=== PATIENT | male | born 1995 | race Hispanic/Latino ===

== ENCOUNTER 2018-01-16 01:08 | Emergency (ER) | payer SELFPAY ==
[2018-01-16 02:03] LABS: Absolute Lymphocytes (CBC) 2.2 K/uL (0.7-4.9); Absolute Monocytes 0.8 K/uL (0.1-1.3); Absolute Neutrophil 5.5 K/uL (1.8-8.0); Basophils % 0.4 % (0-1.3); Eosinophils % 3.2 % (0-4.4); Hematocrit 45.6 % (39.6-49.0); Lymphocytes % 24.6 % (15.3-44.8); MCH 30.5 pg (27.0-35.0); MCV 89.4 fL (80-100); MPV 8.1 fL (7.6-11.3); Monocytes % 9.2 % (3.3-12.3)
[2018-01-16 02:10] LABS: Bicarbonate 27 mEq/L (21-31); Glucose Level 115 mg/dL (65-120); Potassium 3.6 mEq/L (3.6-5.0); Sodium Level 137 mEq/L (135-145)
[2018-01-16 02:13] LABS: ALT/SGPT 26 IU/L (10-60); AST/SGOT 24 IU/L (10-42); Albumin 4.1 g/dL (3.2-5.5); Alkaline Phosphatase 72 IU/L (42-121); BUN Blood Urea Nitrogen 12 mg/dL (6-20); Bilirubin Total 0.5 mg/dL (0.3-1.2); Protein, Total 7.1 g/dL (6.0-8.3)
--- NOTE | 2018-01-16 02:25 | EDPHYS ---
Physician Documentation [facility] Name: Etienne Carter Jr Age: 22 yrs Sex: Male : 1995 Arrival Date: 01/16/2018 Time: 01:09 Bed 8 Private MD: ED Physician Thomas Gutierrez HPI: 01/16 01:40 This 22 yrs old Male presents to ER via Ambulatory with complaints of Chest ps1 Pain. 01:40 Onset of CP was just NIGHT COORDINATOR which awoke patient up from sleep. Localized to sternum and ps1 reproducible with palpation. 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 States his symptoms are associated with SOB. No trauma. Pain is intermittent. . Historical: - Allergies: 01:30 No Known Allergies; bb - Home Meds: 01:30 tylenol [Active]; bb - PMHx: :30 None; bb - PSHx: 01:30 None; bb - Immunization history:: Adult Immunizations up to date. - Social history:: Smoking status: Patient uses tobacco products, denies chronic smoking, but will smoke occasionally, Patient uses alcohol, occasionally. Patient/guardian denies using street drugs. - Ebola Screening: : No symptoms or risks identified at this time. ROS: 01:40 Constitutional: Negative for fever, chills, and weight loss, Eyes: Negative for injury, ps1 pain, redness, and discharge, Neck: Negative for injury, pain, and swelling, Respiratory: Negative for shortness of breath, cough, wheezing, and pleuritic chest pain, Abdomen/GI: Negative for abdominal pain, nausea, vomiting, diarrhea, and constipation, Back: Negative for injury and pain, MS/Extremity: Negative for injury and deformity, Skin: Negative for injury, rash, and discoloration, Neuro: Negative for headache, weakness, numbness, tingling, and seizure. 01:40 Cardiovascular: Positive for chest pain, of the xyphoid area. Exam: 01:40 Constitutional: This is a well developed, well nourished patient who is awake, alert, ps1 and in no acute distress. Head/Face: Normocephalic, atraumatic. Eyes: Pupils equal round and reactive to light, extra-ocular motions intact. Lids and lashes normal. Conjunctiva and sclera are non-icteric and not injected. ENT: Nares patent. No nasal discharge, no septal abnormalities noted. Tympanic membranes are normal and external auditory canals are clear. Oropharynx with no redness, swelling, or masses, exudates, or evidence of obstruction, uvula midline. Mucous membranes moist. Chest/axilla: Normal chest wall appearance and motion. Nontender with no deformity. No lesions are appreciated. Respiratory: Lungs have equal breath sounds bilaterally, clear to auscultation and percussion. No rales, rhonchi or wheezes noted. No increased work of breathing, no retractions or nasal flaring. Abdomen/GI: Soft, non-tender, with normal bowel sounds. No distension or tympany. No guarding or rebound. No evidence of tenderness throughout. Skin: Warm, dry with normal turgor. Normal color with no rashes, no lesions, and no evidence of cellulitis. 01:40 Cardiovascular: Rate: normal, Rhythm: regular, Pulses: no pulse deficits are appreciated. Vital Signs: 01:30 BP 119 / 78; Pulse 63; Resp 18 S; Temp 97.8(O); Pulse Ox 98% on R/A; Weight 86.18 kg bb (R); Height 5 ft. 6 in. (167.64 cm) (R); Pain 8/10; 02:30 BP 123 / 79; Pulse 78; Resp 18; Pulse Ox 100% on R/A; Pain 0/10; mg2 01:30 Body Mass Index 30.67 (86.18 kg, 167.64 cm) bb MDM: 01:40 Patient medically screened. ps1 02:23 Data reviewed: vital signs, nurses notes, lab test result(s), EKG, radiologic studies. ps1 ED course: reproducible pain. Pt stable for discharge. Home with anaprox and medrol. . 01/16 01:33 Order name: Troponin (emerg Dept Use Only) 01/16 01:33 Order name: CBC with Diff; Complete Time: 02:19 bb 01/16 01:33 Order name: EKG; Complete Time: 01:33 01/16 01:33 Order name: CMP; Complete Time: 02:18 01/16 01:33 Order name: XRAY CXR (1 view) 01/16 01:34 Order name: Troponin (Emerg Dept Use Only); Complete Time: 02:21 EDMS 01/16 01:33 Order name: EKG - Nurse/Tech; Complete Time: 01:41 bb EC:40 Rate is 62 beats/min. Rhythm is regular. QRS [place] is Normal. DC interval is normal. QRS ps1 interval is normal. QT interval is normal. No Q waves. T waves are Normal. Clinical impression: Normal ECG. Interpreted by me. Administered Medications: No medications were administered Disposition: 01/16/18 02:24 Discharged to Home. Impression: costochondritis, other chest pain. - Condition is Stable. - Discharge Instructions: Costochondritis, [id number]. - Prescriptions for Anaprox DS 550 mg Oral Tablet - take 1 tablet by ORAL route every 12 hours As needed; 20 tablet. Medrol (Tito) 4 mg Oral Tablets, Dose Pack - take 1 tablet by ORAL route as directed - follow package instructions; 1 packet. - Medication Reconciliation Form, Thank You Letter, Antibiotic Education, Prescription Opioid Use form. - Follow up: Private Physician; When: As needed; Reason: Recheck today's complaints, Continuance of care, Re-evaluation by your physician. Follow up: Emergency Department; When: As needed; Reason: Trouble breathing, Worsening of condition. - Problem is new. - Symptoms have improved. Signatures: Dispatcher [employer] EDMS Lisa Mai RN RN bb Thomas Gutierrez MD MD ps1 Narciso Franco RN RN mg2 Corrections: (The following items were deleted from the chart) 02:45 02:24 01/16/2018 02:24 Discharged to Home. Impression: costochondritis; other chest mg2 pain. Condition is Stable. Forms are Medication Reconciliation Form, Thank You Letter, Antibiotic Education, Prescription Opioid Use. Follow up: Private Physician; When: As needed; Reason: Recheck today's complaints, Continuance of care, Re-evaluation by your physician. Follow up: Emergency Department; When: As needed; Reason: Trouble breathing, Worsening of condition. Problem is new. Symptoms have improved. ps1
--- NOTE | 2018-01-16 02:25 | ER ---
Nurse's Notes [facility] Name: Etienne Carter Jr Age: 22 yrs Sex: Male : 1995 Arrival Date: 01/16/2018 Time: 01:09 Bed 8 Private MD: Diagnosis: costochondritis;other chest pain Presentation: 01/16 01:28 Presenting complaint: Patient states: he woke up with sudden onset of right sided chest bb pain denies radiation, light-headedness or nausea, pt states he has been coughing x 2 days, denies fever. Transition of care: patient was not received from another setting of care. Onset of symptoms was January 16, 2018. Risk Assessment: Do you want to hurt yourself or someone else? Patient reports no desire to harm self or others. Initial Sepsis Screen: Does the patient meet any 2 criteria? No. Patient's initial sepsis screen is negative. Does the patient have a suspected source of infection? No. Patient's initial sepsis screen is negative. Care prior to arrival: None. :28 Method Of Arrival: Ambulatory bb 01:28 Acuity: MEAGAN 3 bb Historical: - Allergies: 01:30 No Known Allergies; bb - Home Meds: 01:30 tylenol [Active]; bb - PMHx: 01:30 None; bb - PSHx: 01:30 None; bb - Immunization history:: Adult Immunizations up to date. - Social history:: Smoking status: Patient uses tobacco products, denies chronic smoking, but will smoke occasionally, Patient uses alcohol, occasionally. Patient/guardian denies using street drugs. - Ebola Screening: : No symptoms or risks identified at this time. Screenin:04 Abuse screen: Denies threats or abuse. Denies injuries from another. Nutritional mg2 screening: No deficits noted. Tuberculosis screening: No symptoms or risk factors identified. Fall Risk IV access (20 points). Assessment: 02:02 General: Appears in no apparent distress. comfortable, Behavior is calm, cooperative. mg2 Pain: Complains of pain in chest Pain does not radiate. Pain currently is 6 out of 10 on a pain scale. Quality of pain is described as aching, Pain began 2 hours ago. Is intermittent, Also complains of cough. Neuro: Level of Consciousness is awake, alert, obeys commands, Oriented to person, place, time, situation. Cardiovascular: Capillary refill < 3 seconds Patient's skin is warm and dry. Chest pain is described as mild, diffuse, quality is aching is located in right began 2 hours prior to arrival episodes are intermittent. Respiratory: Airway is patent Respiratory effort is even, unlabored, Respiratory pattern is regular, symmetrical. GI: No signs and/or symptoms were reported involving the gastrointestinal system. : No signs and/or symptoms were reported regarding the genitourinary system. EENT: No signs and/or symptoms were reported regarding the EENT system. Derm: Skin is intact, Skin is pink, warm \T\ dry. normal. Musculoskeletal: No signs and/or symptoms reported regarding the musculoskeletal system. Vital Signs: 01:30 BP 119 / 78; Pulse 63; Resp 18 S; Temp 97.8(O); Pulse Ox 98% on R/A; Weight 86.18 kg bb (R); Height 5 ft. 6 in. (167.64 cm) (R); Pain 8/10; 02:30 BP 123 / 79; Pulse 78; Resp 18; Pulse Ox 100% on R/A; Pain 0/10; mg2 01:30 Body Mass Index 30.67 (86.18 kg, 167.64 cm) bb ED Course: 01:09 Patient arrived in ED. es 01:30 Triage completed. bb 01:30 Arm band placed on Patient placed in an exam room, on a stretcher, on hall monitor, bb on pulse oximetry. EKG completed in triage. Results shown to MD. 01:35 Thomas Gutierrez MD is Attending Physician. ps1 01:40 Narciso Franco RN is Primary Nurse. mg2 01:43 X-ray completed. Portable x-ray completed in exam room. Patient tolerated procedure kw well. 01:44 XRAY CXR (1 view) In Process Unspecified. EDMS 02:05 Patient has correct armband on for positive identification. Call light in reach. Side mg2 rails up X2. potline monitor on. Pulse ox on. NIBP on. Door closed. Warm blanket given. 02:05 Inserted saline lock: 20 gauge in left antecubital area, using aseptic technique. Blood mg2 collected. Patient maintains SpO2 saturation greater than 95% on room air. 02:06 Initial lab(s) drawn, by me, sent to lab. EKG done. mg2 02:43 No provider procedures requiring assistance completed. IV discontinued, intact, mg2 bleeding controlled, No redness/swelling at site. Pressure dressing applied. Administered Medications: No medications were administered Outcome: 02:24 Discharge ordered by . ps1 02:44 Discharged to home ambulatory, with family. mg2 02:44 Condition: stable 02:44 Discharge instructions given to patient, family, Instructed on discharge instructions, follow up and referral plans. medication usage, Demonstrated understanding of instructions, follow-up care, medications, Prescriptions given X 2. 02:45 Patient left the ED. mg2 Signatures: Dispatcher [employer] Frida Trujillo Brenda, RN RN bb Jessica Castaneda Phillip, MD MD ps1 Narciso Franco RN RN mg2
--- NOTE | 2018-01-16 07:38 | EKG ---
Test Date: 2018-01-16 Test Time: 01:32:00 Water Resource Project Manager: JOE MEASUREMENT RESULTS: Intervals: Rate: 62 AR: 138 QRSD: 112 QT: 408 QTc: 414 [place]: P: 9 AR: 138 QRS: -17 T: 14 INTERPRETIVE STATEMENTS: Normal sinus rhythm Moderate voltage criteria for LVH, may be normal variant Borderline ECG No previous ECG available for comparison Electronically Signed On 01-16-18 07:37:52 CDT by Yobani Campa
--- NOTE | 2018-01-16 07:57 | RAD REPORT ---
EXAM DESCRIPTION: Tamy Single View01/16/2018 1:45 am CLINICAL HISTORY: Chest pain COMPARISON: none FINDINGS: The lungs appear clear of acute infiltrate. The heart is normal size IMPRESSION: No acute abnormalities displayed
== END 2018-01-16 02:45 | disposition home or self-care (01) ==
LOC: ER 01:08
DX: M94.0 Chondrocostal junction syndrome [Tietze] (principal); R07.89 Other chest pain; F17.200 Nicotine dependence, unspecified, uncomplicated
CPT/HCPCS: 36415; 71045; 80053; 84484; 85025; 93005; 99285

== ENCOUNTER 2018-11-06 06:45 | Emergency (ER) | payer SELFPAY ==
[2018-11-06 07:50] LABS: ALT/SGPT 35 U/L (12-78); AST/SGOT 18 U/L (15-37); Absolute Lymphocytes (CBC) 1.3 K/uL (0.7-4.9); Absolute Monocytes 0.3 K/uL (0.1-1.3); Absolute Neutrophil 2.4 K/uL (1.8-8.0); Alkaline Phosphatase 90 U/L (45-117); BUN Blood Urea Nitrogen 10 mg/dL (7-18); Basophils % 0.8 % (0-1.3); Bicarbonate 27 mmol/L (21-32); Bilirubin Direct 0.1 mg/dL (0-0.2); Bilirubin Total 0.5 mg/dL (0.2-1.0); Eosinophils % 2.9 % (0-4.4); Glucose Level 208 mg/dL (74-106); Hematocrit 45.6 % (39.6-49.0); Lipase 194 U/L (73-393); MPV 8.1 fL (7.6-11.3); Potassium 3.6 mmol/L (3.5-5.1); Protein, Total 7.1 g/dL (6.4-8.2); RBC Red Blood Cell Count 5.15 M/uL (4.33-5.43); Sodium Level 139 mmol/L (136-145)
[2018-11-06] MEDS ORDERED: NA CHLORIDE 0.9% 1,000 ML ONE (07:50)
[2018-11-06] MEDS ORDERED: ONDANSETRON 4 MG/2 ML VIAL ONE (07:50)
--- NOTE | 2018-11-06 08:50 | ER ---
Nurse's Notes [facility] Name: Etienne Carter Jr Age: 23 yrs Sex: Male : 1995 Arrival Date: 11/06/2018 Time: 06:49 Bed 15 Private MD: Diagnosis: Vomiting;Diarrhea, unspecified Presentation: 11/06 07:02 Presenting complaint: Patient states: abd pain and vomiting that began 1 week ago. ss Denies fever. Transition of care: patient was not received from another setting of care. Onset of symptoms was October 30, 2018. Risk Assessment: Do you want to hurt yourself or someone else? Patient reports no desire to harm self or others. Initial Sepsis Screen: Does the patient meet any 2 criteria? No. Patient's initial sepsis screen is negative. Does the patient have a suspected source of infection? No. Patient's initial sepsis screen is negative. Care prior to arrival: None. 07:02 Method Of Arrival: Ambulatory ss 07:02 Acuity: MEAGAN 3 ss Triage Assessment: 07:05 General: Appears in no apparent distress. comfortable, Behavior is calm, cooperative, bp appropriate for age. Pain: Denies pain. GI: Reports nausea, vomiting. Historical: - Allergies: 07:03 No Known Allergies; ss - Home Meds: 07:03 None [Active]; ss - PMHx: 07:03 None; ss - PSHx: 07:03 Hernia repair; ss - Immunization history:: Adult Immunizations up to date. - Social history:: Smoking status: Patient/guardian denies using tobacco. - Ebola Screening: : Patient denies exposure to infectious person Patient denies travel to an Ebola-affected area in the 21 days before illness onset. Screenin:14 Abuse screen: Denies threats or abuse. Denies injuries from another. Nutritional bp screening: No deficits noted. Tuberculosis screening: No symptoms or risk factors identified. Fall Risk None identified. Assessment: 07:05 General: Appears in no apparent distress. comfortable, Behavior is calm, cooperative, bp appropriate for age. Pain: Denies pain. Neuro: Level of Consciousness is awake, alert, obeys commands, Oriented to person, place, time, situation, Appropriate for age. Cardiovascular: No deficits noted. Respiratory: Airway is patent Respiratory effort is even, unlabored, Respiratory pattern is regular, symmetrical. GI: Abdomen is non-distended, Bowel sounds present X 4 quads. : No signs and/or symptoms were reported regarding the genitourinary system. EENT: No deficits noted. Derm: No deficits noted. Musculoskeletal: Circulation, motion, and sensation intact. Range of motion: intact in all extremities. 09:00 Reassessment: PT D/C HOME AMBULATORY, DX WITH UNSPECIFIC VOMITING AND DIARRHEA. bp Vital Signs: 07:03 BP 124 / 79; Pulse 79; Resp 15; Temp 98.4(O); Pulse Ox 100% on R/A; Weight 81.65 kg; ss Height 5 ft. 6 in. (167.64 cm); Pain 8/10; 07:30 BP 119 / 82; Pulse 74; Resp 16; Pulse Ox 99% ; bp 09:00 BP 121 / 52; Pulse 69; Resp 16; Pulse Ox 100% ; bp 07:03 Body Mass Index 29.05 (81.65 kg, 167.64 cm) ED Course: 06:49 Patient arrived in ED. es 06:59 Geronimo Rmoero NP is PHCP. pm1 06:59 Nicholas Lema MD is Attending Physician. pm1 07:01 Narayan Hodgson, TRACIE is Primary Nurse. bp 07:03 Triage completed. ss 07:03 Arm band placed on right wrist. ss 07:14 Patient has correct armband on for positive identification. Bed in low position. Call bp light in reach. Side rails up X2. 07:20 Inserted saline lock: 20 gauge in right antecubital area, using aseptic technique. bp Blood collected. 09:04 No provider procedures requiring assistance completed. IV discontinued, intact, bp bleeding controlled, No redness/swelling at site. Pressure dressing applied. Administered Medications: 07:20 Drug: NS 0.9% 1000 ml Route: IV; Rate: 1000 ml; Site: right antecubital; bp 09:03 Follow up: IV Status: Completed infusion; IV Intake: 500ml bp 07:20 Drug: Zofran 4 mg Route: IVP; Site: right antecubital; bp 08:28 Follow up: Response: No adverse reaction; Nausea is decreased bp Intake: 09:03 IV: 500ml; Total: 500ml. bp Outcome: 08:50 Discharge ordered by . pm1 09:04 Discharged to home ambulatory. bp 09:04 Condition: stable 09:04 Discharge instructions given to patient, Instructed on discharge instructions, follow up and referral plans. medication usage, Demonstrated understanding of instructions, follow-up care, medications, Prescriptions given X 2. 09:05 Patient left the ED. bp Signatures: Frida Burnett Eric em1 Misty Ramos, TRACIE RN ss Geronimo Romero NP DRAPERY AND UPHOLSTERY MEASURER pm1 Narayan Hodgson RN RN bp Corrections: (The following items were deleted from the chart) 07:28 07:20 Notified primary nurse of point of care results. em1 em1
--- NOTE | 2018-11-06 08:51 | EDPHYS ---
Physician Documentation [facility] Name: Etienne Carter Jr Age: 23 yrs Sex: Male : 1995 Arrival Date: 11/06/2018 Time: 06:49 Bed 15 Private MD: ED Physician Nicholas Lema HPI: 11/06 07:20 This 23 yrs old Male presents to ER via Ambulatory with complaints of pm1 Vomiting, Diarrhea. 07:20 The patient presents to the emergency department with vomiting, diarrhea, abdominal pm1 pain, of the right lower quadrant and left lower quadrant, described as crampy. Onset: The symptoms/episode began/occurred 1 week(s) ago. Possible causes: unknown. The symptoms are aggravated by nothing. The symptoms are alleviated by nothing. Associated signs and symptoms: Pertinent negatives: constipation, fever, GI bleeding. Severity of symptoms: Pain is currently a 0 / 10. The patient has not experienced similar symptoms in the past. The patient has not recently seen a physician. Patient with complaints of nausea, vomiting, and diarrhea for 1 week. Diarrhea about 3-4 times per day and vomiting 1-2 times per day. Occasional cramping pain to lower abdomen. Patient denies any fever to me. Historical: - Allergies: 07:03 No Known Allergies; ss - Home Meds: 07:03 None [Active]; ss - PMHx: 07:03 None; ss - PSHx: 07:03 Hernia repair; ss - Immunization history:: Adult Immunizations up to date. - Social history:: Smoking status: Patient/guardian denies using tobacco. - Ebola Screening: : Patient denies exposure to infectious person Patient denies travel to an Ebola-affected area in the 21 days before illness onset. ROS: 07:20 Constitutional: Negative for fever, chills, and weight loss, Eyes: Negative for injury, pm1 pain, redness, and discharge, ENT: Negative for injury, pain, and discharge, Neck: Negative for injury, pain, and swelling, Cardiovascular: Negative for chest pain, palpitations, and edema, Respiratory: Negative for shortness of breath, cough, wheezing, and pleuritic chest pain. 07:20 Back: Negative for injury and pain, : Negative for injury, bleeding, discharge, and swelling, MS/Extremity: Negative for injury and deformity, Skin: Negative for injury, rash, and discoloration, Neuro: Negative for headache, weakness, numbness, tingling, and seizure. 07:20 Abdomen/GI: Positive for abdominal pain, nausea, vomiting, and diarrhea, Negative for constipation, hematemesis, rectal bleeding. Exam: 07:20 Constitutional: This is a well developed, well nourished patient who is awake, alert, pm1 and in no acute distress. Head/Face: Normocephalic, atraumatic. Eyes: Pupils equal round and reactive to light, extra-ocular motions intact. Lids and lashes normal. Conjunctiva and sclera are non-icteric and not injected. Cornea within normal limits. Periorbital areas with no swelling, redness, or edema. ENT: Nares patent. No nasal discharge, no septal abnormalities noted. Tympanic membranes are normal and external auditory canals are clear. Oropharynx with no redness, swelling, or masses, exudates, or evidence of obstruction, uvula midline. Mucous membranes moist. Neck: Trachea midline, no thyromegaly or masses palpated, and no cervical lymphadenopathy. Supple, full range of motion without nuchal rigidity, or vertebral point tenderness. No Meningismus. Chest/axilla: Normal chest wall appearance and motion. Nontender with no deformity. No lesions are appreciated. Cardiovascular: Regular rate and rhythm with a normal S1 and S2. No gallops, murmurs, or rubs. No pulse deficits. Respiratory: Lungs have equal breath sounds bilaterally, clear to auscultation and percussion. No rales, rhonchi or wheezes noted. No increased work of breathing, no retractions or nasal flaring. Abdomen/GI: Soft, non-tender, with normal bowel sounds. No distension or tympany. No guarding or rebound. No evidence of tenderness throughout. Back: No spinal tenderness. No costovertebral tenderness. Full range of motion. Skin: Warm, dry with normal turgor. Normal color with no rashes, no lesions, and no evidence of cellulitis. MS/ Extremity: Pulses equal, no cyanosis. Neurovascular intact. Full, normal range of motion. 07:20 Neuro: Orientation: is normal, Motor: is normal, moves all fours. Vital Signs: 07:03 BP 124 / 79; Pulse 79; Resp 15; Temp 98.4(O); Pulse Ox 100% on R/A; Weight 81.65 kg; ss Height 5 ft. 6 in. (167.64 cm); Pain 8/10; 07:30 BP 119 / 82; Pulse 74; Resp 16; Pulse Ox 99% ; bp 09:00 BP 121 / 52; Pulse 69; Resp 16; Pulse Ox 100% ; bp 07:03 Body Mass Index 29.05 (81.65 kg, 167.64 cm) ss MDM: 06:59 Patient medically screened. pm1 08:48 Data reviewed: vital signs. Data interpreted: Pulse oximetry: on room air is 99 %. pm1 Interpretation: normal. Counseling: I had a detailed discussion with the patient and/or guardian regarding: the historical points, exam findings, and any diagnostic results supporting the discharge/admit diagnosis, lab results, the need for outpatient follow up, to return to the emergency department if symptoms worsen or persist or if there are any questions or concerns that arise at home. 11/06 07:13 Order name: Basic Metabolic Panel; Complete Time: 07:55 pm1 11/06 07:13 Order name: CBC with Diff; Complete Time: 07:55 pm1 11/06 07:13 Order name: Creatinine for Radiology; Complete Time: 07:55 pm1 11/06 07:13 Order name: Hepatic Function; Complete Time: 07:55 pm1 11/06 07:13 Order name: Lipase; Complete Time: 07:55 pm1 11/06 07:13 Order name: IV Saline Lock; Complete Time: 07:44 pm1 11/06 07:13 Order name: Labs collected and sent; Complete Time: 07:44 pm1 Administered Medications: 07:20 Drug: NS 0.9% 1000 ml Route: IV; Rate: 1000 ml; Site: right antecubital; bp 09:03 Follow up: IV Status: Completed infusion; IV Intake: 500ml bp 07:20 Drug: Zofran 4 mg Route: IVP; Site: right antecubital; bp 08:28 Follow up: Response: No adverse reaction; Nausea is decreased bp Disposition: 11/06/18 08:50 Discharged to Home. Impression: Vomiting, Diarrhea, unspecified. - Condition is Stable. - Discharge Instructions: Diarrhea, Adult, Nausea and Vomiting, Adult, Viral Gastroenteritis, Adult. - Prescriptions for Bentyl 20 mg Oral Tablet - take 1 tablet by ORAL route every 6 hours As needed; 20 tablet. Zofran 4 mg Oral Tablet - take 1 tablet by ORAL route every 12 hours As needed; 20 tablet. - Work release form, Medication Reconciliation Form, Thank You Letter, Antibiotic Education, Prescription Opioid Use form. - Follow up: Emergency Department; When: As needed; Reason: Worsening of condition. Follow up: Private Physician; When: 2 - 3 days; Reason: Recheck today's complaints, Continuance of care, Re-evaluation by your physician. - Problem is new. - Symptoms have improved. Addendum: 11/09/2018 19:00 Co-signature as Attending Physician, Nicholas payne Signatures: Dispatcher [employer] EDMS Nicholas Lema MD MD pkl Smirch, Shelby, RN RN ss Geronimo Romero, NORMAN SIGNAL TOWER OPERATOR pm1 Narayan Hodgson RN RN bp Corrections: (The following items were deleted from the chart) 11/06 09:05 08:50 11/06/2018 08:50 Discharged to Home. Impression: Vomiting; Diarrhea, unspecified. bp Condition is Stable. Forms are Medication Reconciliation Form, Thank You Letter, Antibiotic Education, Prescription Opioid Use. Follow up: Emergency Department; When: As needed; Reason: Worsening of condition. Follow up: Private Physician; When: 2 - 3 days; Reason: Recheck today's complaints, Continuance of care, Re-evaluation by your physician. Problem is new. Symptoms have improved. pm1
== END 2018-11-06 09:05 | disposition home or self-care (01) ==
LOC: ER 06:45
DX: R19.7 Diarrhea, unspecified (principal)
CPT/HCPCS: 36415; 80048; 80076; 83690; 85025; 96361; 96374; 99284; J2405; J7030

== ENCOUNTER 2018-12-03 08:48 | Emergency (ER) | payer SELFPAY ==
--- NOTE | 2018-12-03 09:50 | EDPHYS ---
Physician Documentation [facility] Name: Etienne Carter Jr Age: 23 yrs Sex: Male : 1995 Arrival Date: 12/03/2018 Time: 08:50 Bed 12 Private MD: ED Physician Griffin Michel HPI: 12/03 09:37 This 23 yrs old Male presents to ER via Ambulatory with complaints of Low Back alonzo Pain. 09:37 The patient presents with pain that is acute, and decreased range of motion. The alonzo symptoms are located in the low back. The pain does not radiate. The problem was sustained when bending over, when lifting. Onset: The symptoms/episode began/occurred just prior to arrival, this morning. Modifying factors: The patient symptoms are alleviated by remaining still, rest. Associated signs and symptoms: The patient has no apparent associated signs or symptoms. Severity of symptoms: At their worst the symptoms were mild, moderate, in the emergency department the symptoms are unchanged. The patient has not experienced similar symptoms in the past. Historical: - Allergies: 08:56 No Known Allergies; iw - Home Meds: 08:56 None [Active]; iw - PMHx: 08:56 None; iw - PSHx: 08:56 Hernia repair; iw - Immunization history:: Adult Immunizations not up to date. - Social history:: Smoking status: Patient uses tobacco products, denies chronic smoking, but will smoke occasionally. - Ebola Screening: : Patient negative for fever greater than or equal to 101.5 degrees Fahrenheit, and additional compatible Ebola Virus Disease symptoms Patient denies exposure to infectious person Patient denies travel to an Ebola-affected area in the 21 days before illness onset No symptoms or risks identified at this time. - Family history:: not pertinent. ROS: 09:37 Constitutional: Negative for fever, chills, and weight loss, Eyes: Negative for injury, alonzo pain, redness, and discharge, ENT: Negative for injury, pain, and discharge, Neck: Negative for injury, pain, and swelling, Cardiovascular: Negative for chest pain, palpitations, and edema, Respiratory: Negative for shortness of breath, cough, wheezing, and pleuritic chest pain, Abdomen/GI: Negative for abdominal pain, nausea, vomiting, diarrhea, and constipation, : Negative for injury, bleeding, discharge, and swelling, MS/Extremity: Negative for injury and deformity, Skin: Negative for injury, rash, and discoloration, Neuro: Negative for headache, weakness, numbness, tingling, and seizure, Psych: Negative for depression, anxiety, suicide ideation, homicidal ideation, and hallucinations, Allergy/Immunology: Negative for hives, rash, and allergies, Endocrine: Negative for neck swelling, polydipsia, polyuria, polyphagia, and marked weight changes, Hematologic/Lymphatic: Negative for swollen nodes, abnormal bleeding, and unusual bruising. 09:37 Back: Positive for decreased range of motion, pain at rest, pain with movement, of the lumbar area. Exam: 09:37 Constitutional: This is a well developed, well nourished patient who is awake, alert, alonzo and in no acute distress. Head/Face: Normocephalic, atraumatic. Eyes: Pupils equal round and reactive to light, extra-ocular motions intact. Lids and lashes normal. Conjunctiva and sclera are non-icteric and not injected. Cornea within normal limits. Periorbital areas with no swelling, redness, or edema. ENT: Nares patent. No nasal discharge, no septal abnormalities noted. Tympanic membranes are normal and external auditory canals are clear. Oropharynx with no redness, swelling, or masses, exudates, or evidence of obstruction, uvula midline. Mucous membranes moist. Neck: Trachea midline, no thyromegaly or masses palpated, and no cervical lymphadenopathy. Supple, full range of motion without nuchal rigidity, or vertebral point tenderness. No Meningismus. Chest/axilla: Normal chest wall appearance and motion. Nontender with no deformity. No lesions are appreciated. Cardiovascular: Regular rate and rhythm with a normal S1 and S2. No gallops, murmurs, or rubs. Normal PMI, no JVD. No pulse deficits. Respiratory: Lungs have equal breath sounds bilaterally, clear to auscultation and percussion. No rales, rhonchi or wheezes noted. No increased work of breathing, no retractions or nasal flaring. Abdomen/GI: Soft, non-tender, with normal bowel sounds. No distension or tympany. No guarding or rebound. No evidence of tenderness throughout. Male : Normal genitalia with no discharge or lesions. Skin: Warm, dry with normal turgor. Normal color with no rashes, no lesions, and no evidence of cellulitis. MS/ Extremity: Pulses equal, no cyanosis. Neurovascular intact. Full, normal range of motion. Neuro: Awake and alert, GCS 15, oriented to person, place, time, and situation. Cranial nerves II-XII grossly intact. Motor strength 5/5 in all extremities. Sensory grossly intact. Cerebellar exam normal. Normal gait. Psych: Awake, alert, with orientation to person, place and time. Behavior, mood, and affect are within normal limits. 09:37 Back: pain, that is mild, that is moderate, ROM is painful, normal spinal alignment noted, CVA tenderness, is absent, muscle spasm, is appreciated in the left low back, left mid back, right mid back and right low back. Vital Signs: 08:56 BP 114 / 83; Pulse 79; Resp 16; Temp 98.1; Pulse Ox 98% on R/A; Weight 81.65 kg; Height iw 5 ft. 6 in. (167.64 cm); Pain 9/10; 08:56 Body Mass Index 29.05 (81.65 kg, 167.64 cm) MDM: 08:59 Patient medically screened. [facility] 09:44 Data reviewed: vital signs, nurses notes, lab test result(s), radiologic studies, plain alonzo films. 12/03 09:58 Order name: Urine Dipstick--Ancillary (enter results) 12/03 09:00 Order name: Lumbar Spine (3 Views) XRAY [facility] 12/03 09:00 Order name: Urine Dipstick-Ancillary (obtain specimen); Complete Time: 09:38 [facility] 12/03 09:53 Order name: Blood Glucose Level; Complete Time: 09:57 [facility] Administered Medications: No medications were administered Point of Care Testing: Blood Glucose: 09:57 Blood Glucose: 214 mg/dL; Ranges: Critical Glucose Levels:Adult <50 mg/dl or >400 mg/dl <40 mg/dl or >180 mg/dl Disposition: 12/03/18 09:49 Discharged to Home. Impression: Low back pain, Spondylolysis, lumbar region, Spina bifida occulta, Type 2 diabetes mellitus. - Condition is Stable. - Discharge Instructions: Back Pain, Adult, Type 2 Diabetes Mellitus, Diagnosis, Adult, Back Injury Prevention, Hkbu-[id number], Back Pain, Adult, Bkvl-ly-Vhyl, Type 2 Diabetes Mellitus, Diagnosis, Adult, Uzum-dh-Nlme, Back Exercises, Back Injury Prevention. - Prescriptions for Ibuprofen 600 mg Oral Tablet - take 1 tablet by ORAL route every 8 hours As needed take with food; 21 tablet. - Medication Reconciliation Form, Thank You Letter, Antibiotic Education, Prescription Opioid Use, Work release form form. - Follow up: Private Physician; When: 2 - 3 days; Reason: Recheck today's complaints, Continuance of care, Re-evaluation by your physician. Follow up: Yonathan Melgar MD; When: 2 - 3 days; Reason: Recheck today's complaints, Continuance of care, Re-evaluation by your physician. Follow up: Heber Polo MD; When: 2 - 3 days; Reason: Recheck today's complaints, Re-evaluation by your physician. - Problem is new. - Symptoms have improved. Signatures: Dispatcher [employer] EDWV Griffin Michel MD MD cha Williams, Irene, RN RN iw Corrections: (The following items were deleted from the chart) 09:54 09:49 12/03/2018 09:49 Discharged to Home. Impression: Low back pain; Spondylolysis, alonzo lumbar region; Spina bifida occulta. Condition is Stable. Forms are Medication Reconciliation Form, Thank You Letter, Antibiotic Education, Prescription Opioid Use. Follow up: Private Physician; When: 2 - 3 days; Reason: Recheck today's complaints, Continuance of care, Re-evaluation by your physician. Follow up: Yonathan Melgar; When: 2 - 3 days; Reason: Recheck today's complaints, Continuance of care, Re-evaluation by your physician. Problem is new. Symptoms have improved. [facility] 09:55 09:54 12/03/2018 09:49 Discharged to Home. Impression: Low back pain; Spondylolysis, alonzo lumbar region; Spina bifida occulta; Type 2 diabetes mellitus. Condition is Stable. Discharge Instructions: Back Pain, Adult, Back Injury Prevention, Bgbj-md-Vfbf, Back Pain, Adult, Porf-re-Ulbo, Back Exercises, Back Injury Prevention. Prescriptions for Ibuprofen 600 mg Oral Tablet - take 1 tablet by ORAL route every 8 hours As needed take with food; 21 tablet. and Forms are Medication Reconciliation Form, Thank You Letter, Antibiotic Education, Prescription Opioid Use. Follow up: Private Physician; When: 2 - 3 days; Reason: Recheck today's complaints, Continuance of care, Re-evaluation by your physician. Follow up: Yonathan Melgar; When: 2 - 3 days; Reason: Recheck today's complaints, Continuance of care, Re-evaluation by your physician. Problem is new. Symptoms have improved. [facility] 10:16 09:55 12/03/2018 09:49 Discharged to Home. Impression: Low back pain; Spondylolysis, iw lumbar region; Spina bifida occulta; Type 2 diabetes mellitus. Condition is Stable. Discharge Instructions: Back Pain, Adult, Back Injury Prevention, Ekyc-rq-Tnfs, Back Pain, Adult, Cbix-na-Fgyd, Back Exercises, Back Injury Prevention, Type 2 Diabetes Mellitus, Diagnosis, Adult, Type 2 Diabetes Mellitus, Diagnosis, Adult, Dwod-ha-Vqlm. Prescriptions for Ibuprofen 600 mg Oral Tablet - take 1 tablet by ORAL route every 8 hours As needed take with food; 21 tablet. and Forms are Medication Reconciliation Form, Thank You Letter, Antibiotic Education, Prescription Opioid Use. Follow up: Private Physician; When: 2 - 3 days; Reason: Recheck today's complaints, Continuance of care, Re-evaluation by your physician. Follow up: Yonathan Melgar; When: 2 - 3 days; Reason: Recheck today's complaints, Continuance of care, Re-evaluation by your physician. Follow up: Heber Polo; When: 2 - 3 days; Reason: Recheck today's complaints, Re-evaluation by your physician. Problem is new. Symptoms have improved. [facility]
--- NOTE | 2018-12-03 09:50 | ER ---
Nurse's Notes [facility] Name: Etienne Carter Jr Age: 23 yrs Sex: Male : 1995 Arrival Date: 12/03/2018 Time: 08:50 Bed 12 Private MD: Diagnosis: Low back pain;Spondylolysis, lumbar region;Spina bifida occulta;Type 2 diabetes mellitus Presentation: 12/03 08:55 Presenting complaint: Patient states: left low back pain since this morning, bent over iw to pick something up at work, felt a sharp pain shoot up his back. Transition of care: patient was not received from another setting of care. Onset of symptoms was December 03, 2018. Risk Assessment: Do you want to hurt yourself or someone else? Patient reports no desire to harm self or others. Initial Sepsis Screen: Does the patient meet any 2 criteria? No. Patient's initial sepsis screen is negative. Does the patient have a suspected source of infection? No. Patient's initial sepsis screen is negative. Care prior to arrival: None. 08:55 Method Of Arrival: Ambulatory iw 08:55 Acuity: MEAGAN 4 iw Historical: - Allergies: 08:56 No Known Allergies; iw - Home Meds: 08:56 None [Active]; iw - PMHx: 08:56 None; iw - PSHx: 08:56 Hernia repair; iw - Immunization history:: Adult Immunizations not up to date. - Social history:: Smoking status: Patient uses tobacco products, denies chronic smoking, but will smoke occasionally. - Ebola Screening: : Patient negative for fever greater than or equal to 101.5 degrees Fahrenheit, and additional compatible Ebola Virus Disease symptoms Patient denies exposure to infectious person Patient denies travel to an Ebola-affected area in the 21 days before illness onset No symptoms or risks identified at this time. - Family history:: not pertinent. Screenin:59 Abuse screen: Denies threats or abuse. Denies injuries from another. Nutritional iw screening: No deficits noted. Tuberculosis screening: No symptoms or risk factors identified. Fall Risk None identified. Assessment: 08:58 General: Appears in no apparent distress. Behavior is calm, cooperative. Pain: iw Complains of pain in left low back Pain currently is 9 out of 10 on a pain scale. Neuro: Level of Consciousness is awake, alert, obeys commands, Oriented to person, place, time, situation, Moves all extremities. Cardiovascular: Patient's skin is warm and dry. Respiratory: Respiratory effort is even, unlabored, Respiratory pattern is regular. Derm: Skin is intact, is healthy with good turgor. Musculoskeletal: Range of motion: intact in all extremities, Reports pain in back. Vital Signs: 08:56 BP 114 / 83; Pulse 79; Resp 16; Temp 98.1; Pulse Ox 98% on R/A; Weight 81.65 kg; Height iw 5 ft. 6 in. (167.64 cm); Pain 9/10; 08:56 Body Mass Index 29.05 (81.65 kg, 167.64 cm) iw ED Course: 08:50 Patient arrived in ED. as 08:56 Triage completed. iw 08:56 Arm band placed on. iw 08:57 Patrizia Call, RN is Primary Nurse. iw 08:59 Griffin Michel MD is Attending Physician. alonzo 08:59 Patient has correct armband on for positive identification. iw 08:59 No provider procedures requiring assistance completed. iw 09:23 Lumbar Spine (3 Views) XRAY In Process Unspecified. EDMS 09:45 Yonathan Melgar MD is Referral Physician. alonzo 09:54 Heber Polo MD is Referral Physician. alonzo 10:00 Patient did not have IV access during this emergency room visit. iw Administered Medications: No medications were administered Point of Care Testing: Blood Glucose: 09:57 Blood Glucose: 214 mg/dL; iw Ranges: Outcome: 09:49 Discharge ordered by . alonzo 10:15 Discharged to home ambulatory. iw 10:15 Condition: good 10:15 Discharge instructions given to patient, Instructed on discharge instructions, follow up and referral plans. medication usage, Demonstrated understanding of instructions, follow-up care, medications, Prescriptions given X 1. 10:16 Patient left the ED. iw Signatures: Dispatcher [employer] EDAK Griffin Michel MD MD cha Martinez, Amelia as Patrizia Call, RN RN iw
--- NOTE | 2018-12-03 10:05 | RAD REPORT ---
EXAM DESCRIPTION: RAD - Lumbar Spine 3 Views - 12/03/2018 9:24 am CLINICAL HISTORY: Pain;Lower back pain Radiculopathy COMPARISON: No comparisons FINDINGS: Vertebral body heights appear maintained. No compression fracture noted. Mild disc thinnin g with endplate osteophyte noted L4-5 and L5-S1. Mild levoscoliosis is present. IMPRESSION: Mild lumbar levoscoliosis without acute finding demonstrated.
[2018-12-03 10:12] LABS: Urine Blood NEGATIVE (NEG); Urine Glucose 3+ (NEG); Urine Protein 1+ (NEG); Urine Specific Gravity >1.030 (1.005-1.030); Urine pH 5.5 (5.0-7.0)
== END 2018-12-03 10:16 | disposition home or self-care (01) ==
LOC: ER 08:48
DX: M54.5 Low back pain (principal); M43.06 Spondylolysis, lumbar region; Q76.0 Spina bifida occulta; E11.9 Type 2 diabetes mellitus without complications; Z72.0 Tobacco use
CPT/HCPCS: 72100; 81003; 82962; 99283

== ENCOUNTER 2018-12-10 10:12 | Emergency (ER) | payer SELFPAY ==
--- NOTE | 2018-12-10 10:41 | ER ---
Nurse's Notes [facility] Name: Etienne Carter Jr Age: 23 yrs Sex: Male : 1995 Arrival Date: 12/10/2018 Time: 10:18 Bed 15 Private MD: Unknown, Unknown Diagnosis: Hyperglycemia, unspecified Presentation: 12/10 10:26 Presenting complaint: Patient states: i was at work and i felt dizzy and weak, i went tw2 to the safety office and they said my blood sugar was 262, i havent seen a dr but last week i was diagnosed with diabetes. Presenting complaint: Patient states: i am also feeling nauseous, and i urinate all the time and i am thirsty. Transition of care: patient was not received from another setting of care. Onset of symptoms was December 10, 2018. Risk Assessment: Do you want to hurt yourself or someone else? Patient reports no desire to harm self or others. Initial Sepsis Screen: Does the patient meet any 2 criteria? No. Patient's initial sepsis screen is negative. Does the patient have a suspected source of infection? No. Patient's initial sepsis screen is negative. Care prior to arrival: None. 10:26 Method Of Arrival: Ambulatory tw2 10:26 Acuity: MEAGAN 3 tw2 Triage Assessment: 10:29 General: Appears in no apparent distress. Behavior is calm, cooperative, appropriate tw2 for age. Pain: Denies pain. Historical: - Allergies: 10:28 No Known Allergies; tw2 - Home Meds: 10:28 None [Active]; tw2 - PMHx: 10:28 Diabetes - NIDDM; tw2 - PSHx: 10:28 Hernia repair; tw2 - Immunization history:: Adult Immunizations up to date. - Social history:: Smoking status: Patient uses tobacco products, smokes one-half pack cigarettes per day, "2 or 3 cigarettes a day". - Ebola Screening: : Patient denies travel to an Ebola-affected area in the 21 days before illness onset. Screenin:30 Abuse screen: Denies threats or abuse. Nutritional screening: No deficits noted. rb1 Tuberculosis screening: No symptoms or risk factors identified. Fall Risk None identified. Assessment: 10:30 General: Appears in no apparent distress. comfortable, Behavior is calm, cooperative, rb1 Denies fever. Pain: Denies pain. Neuro: Level of Consciousness is awake, alert, obeys commands, Oriented to person, place, time, situation, Reports dizziness, weakness in generalized. Cardiovascular: Capillary refill < 3 seconds is brisk in bilateral fingers. Respiratory: Airway is patent Respiratory effort is even, unlabored, Respiratory pattern is regular, symmetrical. GI: Reports nausea. : No signs and/or symptoms were reported regarding the genitourinary system. Derm: Skin is dry, Skin is normal, Skin temperature is warm. Vital Signs: 10:27 BP 109 / 77; Pulse 68; Resp 17; Temp 98.8(TE); Pulse Ox 98% on R/A; Weight 83.91 kg tw2 (R); Height 5 ft. 6 in. (167.64 cm) (R); Pain 0/10; 10:27 Body Mass Index 29.86 (83.91 kg, 167.64 cm) tw2 ED Course: 10:18 Patient arrived in ED. ag5 10:19 Unknown, Unknown is Private Physician. ag5 10:27 Triage completed. tw2 10:29 Arm band placed on. tw2 10:30 Odalis Lares, RN is Primary Nurse. rb1 10:30 Patient has correct armband on for positive identification. Bed in low position. Call rb1 light in reach. Side rails up X 1. Pulse ox on. NIBP on. 10:32 Thomas Gutierrez MD is Attending Physician. ps1 10:47 No provider procedures requiring assistance completed. Patient did not have IV access rb1 during this emergency room visit. Administered Medications: No medications were administered Point of Care Testing: Blood Glucose: 10:33 Blood Glucose: 204 mg/dL; tw2 Ranges: Outcome: 10:40 Discharge ordered by . ps1 10:48 Discharged to home ambulatory. rb1 10:48 Condition: stable 10:48 Discharge instructions given to patient, Instructed on discharge instructions, follow up and referral plans. medication usage, Demonstrated understanding of instructions, follow-up care, medications, Prescriptions given X 1. 10:48 Patient left the ED. rb1 Signatures: Odalis Lares, TRACIE RN rb1 Kecia Sandoval RN RN tw2 Thomas Gutierrez MD MD ps1 Thad Hua ag5
--- NOTE | 2018-12-10 10:41 | EDPHYS ---
Physician Documentation [facility] Name: Etienne Carter Jr Age: 23 yrs Sex: Male : 1995 Arrival Date: 12/10/2018 Time: 10:18 Bed 15 Private MD: Unknown, Unknown ED Physician Thomas Gutierrez HPI: 12/10 10:37 This 23 yrs old Male presents to ER via Ambulatory with complaints of NEEDS ps1 DIABETIC MEDS. 10:37 patient was seen and evaluated previously and was diagnosed with DM2. Patient does not ps1 have insurance and was not given medications for DM. He felt fatigued today and went to work safety and checked his BS and was 240. He is here for medications. Feels well otherwise and is now asymptomatic.. Historical: - Allergies: 10:28 No Known Allergies; tw2 - Home Meds: 10:28 None [Active]; tw2 - PMHx: 10:28 Diabetes - NIDDM; tw2 - PSHx: 10:28 Hernia repair; tw2 - Immunization history:: Adult Immunizations up to date. - Social history:: Smoking status: Patient uses tobacco products, smokes one-half pack cigarettes per day, "2 or 3 cigarettes a day". - Ebola Screening: : Patient denies travel to an Ebola-affected area in the 21 days before illness onset. ROS: 10:37 Constitutional: Negative for fever, chills, and weight loss, Eyes: Negative for injury, ps1 pain, redness, and discharge, Cardiovascular: Negative for chest pain, palpitations, and edema, Respiratory: Negative for shortness of breath, cough, wheezing, and pleuritic chest pain, Abdomen/GI: Negative for abdominal pain, nausea, vomiting, diarrhea, and constipation, MS/Extremity: Negative for injury and deformity, Skin: Negative for injury, rash, and discoloration, Neuro: Negative for headache, weakness, numbness, tingling, and seizure, Psych: Negative for depression, anxiety, suicide ideation, homicidal ideation, and hallucinations. 10:37 Endocrine: Positive for polydipsia, polyuria. Exam: 10:37 Constitutional: This is a well developed, well nourished patient who is awake, alert, ps1 and in no acute distress. Head/Face: Normocephalic, atraumatic. Eyes: Pupils equal round and reactive to light, extra-ocular motions intact. Lids and lashes normal. Conjunctiva and sclera are non-icteric and not injected. Chest/axilla: Normal chest wall appearance and motion. Nontender with no deformity. No lesions are appreciated. Cardiovascular: Regular rate and rhythm. No gallops, murmurs, or rubs. Normal PMI, no JVD. No pulse deficits. Respiratory: Lungs have equal breath sounds bilaterally, clear to auscultation and percussion. No rales, rhonchi or wheezes noted. No increased work of breathing, no retractions or nasal flaring. Abdomen/GI: Soft, non-tender, with normal bowel sounds. No distension or tympany. No guarding or rebound. No evidence of tenderness throughout. Skin: Warm, dry with normal turgor. Normal color with no rashes, no lesions, and no evidence of cellulitis. MS/ Extremity: Pulses equal, no cyanosis. Neurovascular intact. Full, normal range of motion. Neuro: Awake and alert, GCS 15, oriented to person, place, time, and situation. Cranial nerves II-XII grossly intact. Sensory grossly intact. Vital Signs: 10:27 BP 109 / 77; Pulse 68; Resp 17; Temp 98.8(TE); Pulse Ox 98% on R/A; Weight 83.91 kg tw2 (R); Height 5 ft. 6 in. (167.64 cm) (R); Pain 0/10; 10:27 Body Mass Index 29.86 (83.91 kg, 167.64 cm) tw2 MDM: 10:37 Data reviewed: vital signs, nurses notes, and as a result, I will discharge patient, ps1 give metformin 500bid and have patient follow with [facility] clinic for reevaluation and need based billing. . 10:40 Patient medically screened. ps1 Administered Medications: No medications were administered Point of Care Testing: Blood Glucose: 10:33 Blood Glucose: 204 mg/dL; tw2 Ranges: Critical Glucose Levels:Adult <50 mg/dl or >400 mg/dl <40 mg/dl or >180 mg/dl Disposition: 12/10/18 10:40 Discharged to Home. Impression: Hyperglycemia, unspecified. - Condition is Stable. - Discharge Instructions: Hyperglycemia. - Prescriptions for Metformin 500 mg Oral Tablet - take 1 tablet by ORAL route once daily for 7 days Then take 1 tablet with morning meals AND evening meals; 21 tablet. - Medication Reconciliation Form, Thank You Letter, Antibiotic Education, Prescription Opioid Use form. - Work release form (12/10/18 15:34). bd - Follow up: Private Physician; When: As needed; Reason: Further diagnostic work-up, Recheck today's complaints, Continuance of care, Re-evaluation by your physician. Follow up: Emergency Department; When: As needed; Reason: Worsening of condition. - Problem is chronic. - Symptoms have improved. Signatures: Odalis Lares, RN RN rb1 Kecia Sandoval RN RN tw2 Thomas Gutierrez MD MD ps1 Ly Reynolds Corrections: (The following items were deleted from the chart) 10:48 10:40 12/10/2018 10:40 Discharged to Home. Impression: Hyperglycemia, unspecified. rb1 Condition is Stable. Forms are Medication Reconciliation Form, Thank You Letter, Antibiotic Education, Prescription Opioid Use. Follow up: Private Physician; When: As needed; Reason: Further diagnostic work-up, Recheck today's complaints, Continuance of care, Re-evaluation by your physician. Follow up: Emergency Department; When: As needed; Reason: Worsening of condition. Problem is chronic. Symptoms have improved. ps1
== END 2018-12-10 10:48 | disposition home or self-care (01) ==
LOC: ER 10:12
DX: E11.65 Type 2 diabetes mellitus with hyperglycemia (principal); F17.210 Nicotine dependence, cigarettes, uncomplicated
CPT/HCPCS: 82962